=== PATIENT | male | born 1965 | race American Indian/Alaskan Native ===

== ENCOUNTER 2022-02-13 11:46 | Emergency (ER) | payer OTHER ==
[2022-02-13 12:19] VITALS: BP 162/93
--- NOTE | 2022-02-13 12:33 | Emergency Department Report ---
Blank Doc - Documentation Documentation: EKG reviewed. Computer notes acute ST elevation NV. No previous EKG available for comparison EKg was discussed and reviewed by Dr. Bazzi on-call interventionalists and he agrees that EKG does not show findings of acute infarct at this time. Nurse informs me patient does not have chest pain and has come primary complaint of dizziness and noncompliance with hypertension medication. Core Winder not activated at this time.
--- NOTE | 2022-02-13 13:22 | XRay Report ---
CHEST PA AND LATERAL VIEWS INDICATION: Chest Pain. COMPARISON: None. FINDINGS: Support devices: None. Heart: Within normal limits. Lungs/Pleura: No acute pulmonary or pleural findings. IMPRESSION: 1. No acute findings. Signer Name: Petey Moreira MD Signed: 02/13/2022 1:18 PM Workstation Name: [id number]
[2022-02-13 13:51] LABS: Basophils % (Auto) 0.5 % (0.0-1.8); Eosinophils # (Auto) 0.1 K/mm3 (0.0-0.4); Hematocrit 50.5 % (35.5-45.6); Hemoglobin 16.8 gm/dl (11.8-15.2); Lymphocytes # (Auto) 2.4 K/mm3 (1.2-5.4); Lymphocytes % (Auto) 32.7 % (13.4-35.0); Mean Corpuscular HGB Conc 33 % (32-34); Mean Corpuscular Volume 102 fl (84-94); Monocytes # (Auto) 0.8 K/mm3 (0.0-0.8); Monocytes % (Auto) 10.7 % (0.0-7.3); Platelet Count 192 K/mm3 (140-440); Red Blood Count 4.97 M/mm3 (3.65-5.03); Red Cell Distribution Width 15.3 % (13.2-15.2)
[2022-02-13 14:09] LABS: Alanine Aminotransferase 23 units/L (7-56); Albumin 4.7 g/dL (3.9-5); BUN/Creatinine Ratio 15; Blood Urea Nitrogen 18 mg/dL (9-20); Calcium 10.4 mg/dL (8.4-10.2); Hemolysis Index 7
--- NOTE | 2022-02-13 14:46 | Emergency Department Report ---
ED General Adult HPI - General Chief complaint: Dizziness Stated complaint: DIZZY Source: patient Mode of arrival: Ambulatory Limitations: No Limitations - History of Present Illness Initial comments: Patient is a 57-year-old -Romanian male with a history of chronic low ba ck pain, nyt-fnazboq-eryhvxpaf diabetes and hypertension who presents to the ED for medication refill after he ran out of his medications about 1 week ago. Patient also complains of intermittent mild lightheadedness. Patient states that he has not taken his medication for over 1 week and that he has tried to contact his primary care physician but no response. Patient denies dizziness, syncope, chest pain or shortness of breath, abdominal pain, headache, nausea and vomiting, change in vision, seizures, fever, chills, cough, or diarrhea. MD Complaint: Ran out of medications, lightheadedness -: week(s) (1) Location: head Radiation: non-radiation Severity scale (0 -10): 2 Quality: dull Consistency: intermittent Improves with: none Worsens with: none Associated Symptoms: denies other symptoms. denies: confusion, chest pain, cough, diaphoresis, fever/chills, headaches, loss of appetite, malaise, nausea/vomiting, rash, seizure, shortness of breath, syncope, weakness, other Treatments Prior to Arrival: none - Related Data Previous Rx's Medication Instructions Recorded Last Taken Type Gabapentin [Neurontin] 600 mg PO Q12H #60 tab 02/13/22 Unknown Rx NIFEdipine [Nifedipine ER] 60 mg PO DAILY #60 tab 02/13/22 Unknown Rx metFORMIN [Glucophage] 500 mg PO Q12H #60 tab 02/13/22 Unknown Rx Allergies Allergy/AdvReac Type Severity Reaction Status Date / Time lisinopril Allergy Angioedema Verified 02/13/22 12:19 ED Review of Systems ROS: Stated complaint: DIZZY Other details as noted in HPI Constitutional: denies: chills, fever Eyes: denies: eye pain, eye discharge, vision change ENT: denies: ear pain, throat pain Respiratory: denies: cough, shortness of breath, wheezing Cardiovascular: other (lightheadedness). denies: chest pain, palpitations, syncope, paroxysmal nocturnal dyspnea Endocrine: no symptoms reported Gastrointestinal: denies: abdominal pain, nausea, vomiting, diarrhea Genitourinary: denies: urgency, dysuria Musculoskeletal: denies: back pain, joint swelling, arthralgia Skin: denies: rash, lesions Neurological: denies: headache, weakness, paresthesias Psychiatric: denies: anxiety, depression Hematological/Lymphatic: denies: easy bleeding, easy bruising ED Past Medical Hx - Past Medical History Hx Hypertension: Yes Hx Diabetes: Yes Additional medical history: chronic back pain - Surgical History Past Surgical History?: No - Social History Smoking Status: Never Smoker - Medications Home Medications: Home Medications Medication Instructions Recorded Confirmed Last Taken Type Gabapentin [Neurontin] 600 mg PO Q12H #60 tab 02/13/22 Unknown Rx NIFEdipine [Nifedipine ER] 60 mg PO DAILY #60 tab 02/13/22 Unknown Rx metFORMIN [Glucophage] 500 mg PO Q12H #60 tab 02/13/22 Unknown Rx ED Physical Exam - General Limitations: No Limitations General appearance: alert, in no apparent distress - Head Head exam: Present: atraumatic, normocephalic, normal inspection - Eye Eye exam: Present: normal appearance, PERRL, EOMI Pupils: Present: normal accommodation - ENT ENT exam: Present: normal exam, normal orophraynx, mucous membranes moist, TM's normal bilaterally, normal external ear exam - Neck Neck exam: Present: normal inspection, full ROM. Absent: tenderness - Respiratory Respiratory exam: Present: normal lung sounds bilaterally. Absent: respiratory distress, wheezes, rales, rhonchi, chest wall tenderness, accessory muscle use, decreased breath sounds, prolonged expiratory - Cardiovascular Cardiovascular Exam: Present: regular rate, normal rhythm, normal heart sounds. Absent: systolic murmur, diastolic murmur, rubs, gallop - GI/Abdominal GI/Abdominal exam: Present: soft, normal bowel sounds. Absent: tenderness, guarding, rebound, hyperactive bowel sounds, hypoactive bowel sounds - Extremities Exam Extremities exam: Present: normal inspection, full ROM, normal capillary refill. Absent: tenderness, pedal edema, joint swelling, calf tenderness - Back Exam Back exam: Present: normal inspection, full ROM. Absent: tenderness, CVA tenderness (R), CVA tenderness (L), muscle spasm, paraspinal tenderness, vertebral tenderness, rash noted - Neurological Exam Neurological exam: Present: alert, oriented X3, CN II-XII intact, normal gait, reflexes normal - Psychiatric Psychiatric exam: Present: normal affect, normal mood - Skin Skin exam: Present: warm, dry, intact, normal color. Absent: rash ED Course Vital Signs 02/13/22 12:12 Temperature 98.9 F Pulse Rate 73 Respiratory 17 Rate Blood Pressure 162/93 O2 Sat by Pulse 100 Oximetry ED Medical Decision Making - Lab Data Result diagrams: 02/13/22 13:10 02/13/22 13:10 - EKG Data EKG shows normal: sinus rhythm Rate: normal - EKG Data Interpretation: normal EKG 02/13/22 14:51 EKG shows normal sinus rhythm with a ventricular rate of [address] or T wave abnormalities. - Radiology Data Radiology results: report reviewed, image reviewed [facility] [address] [place] [address] XRay Report Signed Patient: SALINA GUZMAN MR#: [id number] 2 : 1965 Acct:[id number] Age/Sex: 57 / M ADM Date: 02/13/22 Loc: ED Attending Dr: Ordering Physician: ISADORA ASHRAF Date of Service: 02/13/22 Procedure(s): XR chest routine 2V Accession Number(s): [id number] cc: ISADORA ASHRAF Fluoro Time In Minutes: CHEST PA AND LATERAL VIEWS INDICATION: Chest Pain. COMPARISON: None. FINDINGS: Support devices: None. Heart: Within normal limits. Lungs/Pleura: No acute pulmonary or pleural findings. IMPRESSION: 1. No acute findings. Signer Name: Petey Moreira MD Signed: 02/13/2022 1:18 PM Workstation Name: [id number] Transcribed By: FREDRICK Dictated By: Petey Moreira MD Electronically Authenticated By: Petey Moreira MD Signed Date/Time: 02/13/22 1318 DD/ 1317 TD/TT: - Medical Decision Making This is a 57-year-old -Romanian male with a history of chronic low back pain, fue-wjqgrna-[id number] diabetes and hypertension who presents to the ED for medication refill after he ran out of his medications about 1 week ago. Pat ient also complains of intermittent mild lightheadedness. Patient states that he has not taken his medication for over 1 week and that he has tried to contact his primary care physician but no response. In the ED, patient is alert and oriented x3 and is not in any distress. Lab test results were reviewed and are all nonactionable. EKG shows normal sinus rhythm with a ventricular rate of [address] or T wave abnormalities. Chest x-ray showed no acute cardiopulmonary abnormalities or pneumonitis. Patient was discharged home with a refill of his medications and advised to follow-up with his primary care physician in 7 to 10 days for reevaluation or return to the ED immediately if sy mptoms get worse. - Differential Diagnosis Anxiety, ACS, Dehydration; hyperglycemia Critical care attestation.: If time is entered above; I have spent that time in minutes in the direct care of this critically ill patient, excluding procedure time. ED Disposition Clinical Impression: Intermittent lightheadedness, Medication refill Disposition: HOME / SELF CARE / HOMELESS Is pt being admited?: No Does the pt Need Aspirin: No Condition: Stable Instructions: Dizziness, [id number], Medicine Refill at the Emergency Department Additional Instructions: All lab test results were reviewed and are all nonactionable. Chest x-ray showed no acute cardiopulmonary abnormalities or pneumonitis. Therefore take your medications and follow-up with your primary care physician as previously scheduled. Return to the ED immediately if symptoms get worse. Prescriptions: metFORMIN [Glucophage] 500 mg PO Q12H #60 tab Gabapentin [Neurontin] 600 mg PO Q12H #60 tab NIFEdipine [Nifedipine ER] 60 mg PO DAILY #60 tab Referrals: TERESA JOSEPH MD [Staff Physician] - 7-10 days Time of Disposition: 14:44 Print Language: WELSH
--- NOTE | 2022-02-16 18:44 | Electrocardiograph Report ---
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
== END 2022-02-13 15:02 | disposition home or self-care (01) ==
LOC: EDBD → ED 11:46
DX: R42 Dizziness and giddiness (principal); Z76.0 Encounter for issue of repeat prescription; I10 Essential (primary) hypertension; Z88.8 Allergy status to other drugs, medicaments and biological substances; E11.9 Type 2 diabetes mellitus without complications
CPT/HCPCS: 36415; 71046; 80053; 82962; 84484; 85025; 93005; 99283